=== PATIENT | male | born 1995 | race Asian ===

== ENCOUNTER 2022-09-22 16:18 | Emergency (ER) | payer OTHER ==
[~2022-09-22] VITALS: Ht 177.8 cm; Wt 114.8 kg
[~2022-09-22 16:18] MED LIST: IBUP-1971 PO; LEVO750T64 PO; METR-154 PO
[2022-09-22 16:41] VITALS: BP_SYST 157
[2022-09-22 19:23] VITALS: BP_SYST 132
== END 2022-09-22 19:23 | disposition home or self-care (01) ==
LOC: SED 16:18
DX: K61.0 Anal abscess (principal); Z79.899 Other long term (current) drug therapy
CPT/HCPCS: 99283